=== PATIENT | female | born 1980 | race Caucasian/White ===

== ENCOUNTER 2016-09-24 16:55 | Emergency (ER) | payer OTHER ==
[2016-09-24] MEDS ORDERED: diPHENhydraMINE IV* 50 MG/ML 1 ml VIAL (BENADRYL) IV ONE (18:28)
[2016-09-24] MEDS ORDERED: Famotidine IV* 10 MG/ML 2 ML (20 mg) IV SLOW PU ONE (18:28)
[2016-09-24] MEDS ORDERED: NS 0.9% 1000 ML* 1,000 ML IV ONE (18:29)
[2016-09-24] MEDS ORDERED: methylPREDNISolone 125 MG* 2 ML VIAL IV ONE (18:29)
[2016-09-24 19:24] LABS: Hematocrit 40 % (35-47); Hemoglobin 13.1 g/dl (12.0-16.0); Mean Corpuscular HGB Conc 33 g/dl (31-36); Mean Corpuscular Hemoglobin 30 pg (27-31); Mean Corpuscular Volume 92 fL (80-97); Mean Platelet Volume 10 um3 (7.4-10.4); Red Blood Count 4.34 10^6/ul (4.0-5.4); Red Cell Distribution Width 14 % (10.5-15); White Blood Count 8.3 10^3/ul (3.5-10.8)
[2016-09-24 19:43] LABS: ALT 13 U/L (7-52); AST 17 U/L (13-39); Albumin 4.3 g/dL (3.2-5.2); Alkaline Phosphatase 54 U/L (34-104); Anion Gap 2 mmol/L (2-11); BUN/Creatinine Ratio 12.1 (8-20); Blood Urea Nitrogen 8 mg/dL (6-24); C Reactive Protein < 1.00 mg/L (< 5.00); CO2 Carbon Dioxide 32 mmol/L (22-32); Calcium 9.1 mg/dL (8.6-10.3); Chloride 103 mmol/L (101-111); EGFR African American 129.6 (>60); EGFR Non-African American 100.8 (>60); Globulin 2.6 g/dL (2-4); Glucose 86 mg/dL (70-100); Potassium 3.6 mmol/L (3.5-5.0); Sodium 137 mmol/L (133-145); Total Protein 6.9 g/dL (6.4-8.9)
--- NOTE | 2016-09-24 19:58 | ED ---
Skin Complaint - HPI Summary HPI Summary: Pt here w/ spot/rash on Rt flank. Noticed 6 days ago - no acute pain but was itchy and had 2 black dots within raised red area - thought this may be a spider bite although no witnessed bite. [place] a habit [place] - could have been bitten and not known it and could have come into contact with plant life. This area has gotten larger and blistered - itching and painful now. Has tried topical calamine lotion w/ minimal relief. Reports feeling "off" today but admits this happens to her at times. Associated sx of nausea - no vomiting. Denies facial swelling, throat tightness, trouble breathing/wheezing and no fever but has had chills today. H/o allergy to poison sivan - does not recall if she had systemic sx that she's having now but reports "it was bad". Has not tried anti-histamine. Did drink black cohosh tea yesterday - has had this in the past w/o ill effects. No other sx or recent h/o illness to report. - History of Current Complaint Chief Complaint: EDRashSkinAbscess Time Seen by Provider: 09/24/16 17:45 Stated Complaint: SPIDER BITE? Hx Obtained From: Patient, Family/[employer] - friends - 1 is concerned about her feeling "out of it"; other friend said "she gets this way sometimes" Pain Intensity: 4 - Allergy/Home Medications Allergies/Adverse Reactions: Allergies Allergy/AdvReac Type Severity Reaction Status Date / Time No Known Allergies Allergy Verified 01/18/13 13:51 PMH/Surg Hx/FS Hx/Imm Hx Previously Healthy: Yes Endocrine/Hematology History: Denies: Autoimmune Disease - Immunization History Immunizations Up to Date: Unable to Obtain/Confirm - does not want tetanus today 09/24/2016 Infectious Disease History: Denies: Traveled Outside the [place] in Last 30 Days - Social History Occupation: Employed Part-time Lives: Alone Alcohol Use: None Hx Substance Use: No Substance Use Type: Reports: None Hx Tobacco Use: No Smoking Status (MU): Never Smoked Tobacco Review of Systems Constitutional: Other - see HPI Negative: Photophobia, Blurred Vision, Diplopia Negative: Sore Throat, Ear Ache, Nasal Discharge Negative: Chest Pain Negative: Shortness Of Breath, Cough Positive: Nausea. Negative: Abdominal Pain, Vomiting, Diarrhea Positive: no symptoms reported Musculoskeletal: Negative Negative: Arthralgia, Myalgia Skin: Other - see HPI Neurological: Other - see HPI Negative: Headache, Weakness, Paresthesia, Numbness, Syncope, Slurred Speech Psychological: Other - concerned but calm All Other Systems Reviewed And Are Negative: Yes Physical Exam Triage Information Reviewed: Yes Vital Signs On Initial Exam: Initial Vitals Temp Pulse Resp BP Pulse Ox 99.0 F 79 18 112/73 100 09/24/16 17:22 09/24/16 17:22 09/24/16 17:22 09/24/16 17:22 09/24/16 17:22 Vital Signs Reviewed: Yes Appearance: Positive: Well-Appearing, No Pain Distress, Well-Nourished Skin: Positive: Warm - 10cm area of erythema w/ central clustered vesicles - honey color and crusting in some areas - peripheral lesions are linear w/ vesicles, similar to poison sivan/oak patterns - barely crosses midline - no other vesicles along this path around dermatome Head/Face: Positive: Normal Head/Face Inspection Eyes: Positive: Normal, EOMI, JENELLE, Conjunctiva Clear ENT: Positive: Hearing grossly normal, Pharynx normal Neck: Positive: Supple, Nontender, No Lymphadenopathy Respiratory/Lung Sounds: Positive: Clear to Auscultation, Breath Sounds Present. Negative: Rales, Rhonchi, Stridor, Wheezes Cardiovascular: Positive: Normal, RRR, Pulses are Symmetrical in both Upper and Lower Extremities, S1, S2. Negative: Murmur, Rub, Leg Edema Left, Leg Edema Right Abdomen Description: Positive: No Organomegaly, Soft, Other: - mild TTP -no rebounding Bowel Sounds: Positive: Present Musculoskeletal: Positive: Normal, Strength/ROM Intact Neurological: Positive: Normal, Sensory/Motor Intact, Alert, Oriented to Person Place, Time, CN Intact II-III, Finger to Nose, Facial Symmetry, Speech Normal. Negative: Pronator Drift Present Psychiatric: Positive: Normal Diagnostics - Vital Signs Vital Signs Temp Pulse Resp BP Pulse Ox 09/24/16 17:22 99.0 F 79 18 112/73 100 - Laboratory Lab Results: Lab Results 09/24/16 09/24/16 09/24/16 Range/Units 19:14 19:14 19:14 WBC 8.3 (3.5-10.8) 10^3/ul RBC 4.34 (4.0-5.4) 10^6/ul Hgb 13.1 (12.0-16.0) g/dl Hct 40 (35-47) % MCV 92 (80-97) fL MCH 30 (27-31) pg MCHC 33 (31-36) g/dl RDW 14 (10.5-15) % Plt Count 275 (150-450) 10^3/ul MPV 10 (7.4-10.4) um3 Neut % (Auto) 67.8 (38-83) % Lymph % (Auto) 20.4 L (25-47) % Crowley % (Auto) 6.5 (1-9) % Eos % (Auto) 4.3 (0-6) % Baso % (Auto) 1.0 (0-2) % Absolute Neuts (auto) 5.6 (1.5-7.7) 10^3/ul Absolute Lymphs (auto) 1.7 (1.0-4.8) 10^3/ul Absolute Monos (auto) 0.5 (0-0.8) 10^3/ul Absolute Eos (auto) 0.4 (0-0.6) 10^3/ul Absolute Basos (auto) 0.1 (0-0.2) 10^3/ul Absolute Nucleated RBC 0.01 10^3/ul Nucleated RBC % 0.1 Sodium 137 (133-145) mmol/L Potassium 3.6 (3.5-5.0) mmol/L Chloride 103 (101-111) mmol/L Carbon Dioxide 32 (22-32) mmol/L Anion Gap 2 (2-11) mmol/L BUN 8 (6-24) mg/dL Creatinine 0.66 (0.51-0.95) mg/dL Est GFR ( Amer) 129.6 (>60) Est GFR (Non-Af Amer) 100.8 (>60) BUN/Creatinine Ratio 12.1 (8-20) Glucose 86 (70-100) mg/dL Lactic Acid 0.6 (0.5-2.0) mmol/L Calcium 9.1 (8.6-10.3) mg/dL Total Bilirubin 0.40 (0.2-1.0) mg/dL AST 17 (13-39) U/L ALT 13 (7-52) U/L Alkaline Phosphatase 54 (34-104) U/L C-Reactive Protein < 1.00 (< 5.00) mg/L Total Protein 6.9 (6.4-8.9) g/dL Albumin 4.3 (3.2-5.2) g/dL Globulin 2.6 (2-4) g/dL Albumin/Globulin Ratio 1.7 (1-3) Result Diagrams: 09/24/16 19:14 09/24/16 19:14 Lab Statement: Any lab studies that have been ordered have been reviewed, and results considered in the medical decision making process. Course/Dx - Course Course Of Treatment: Suspect rash is from posion plant (sivan or oak) w/ allergic reaction. Offered benadryl, solumedrol and pepcid d/t ab sx - she accepted solumedrol and pepcid - will take benadryl at home. No change in sx w/ IV meds. Advised rest, continued anti-histamines and steroids and close f/u w/ PCP. Labs do not reveal systemic infection, etc. Diff dx: shingles however this is not typical presentation - pt shared first day onset photo and this appears to be a reaction as she has a small raised area w/ urticarial qualities. Reviewed danger s/sx of when to return to ED. - Diagnoses Provider Diagnoses: Rash of back Discharge - Discharge Plan Condition: Stable Disposition: HOME Prescriptions: Methylprednisolone [Medrol Dosepak 4 MG*] 4 mg PO .SEE BECCA INSTRUCTION #1 becca Patient Education Materials: Acute Rash (ED), Poison Sivan (ED) Referrals: Selam Dunn MD [Primary Care Provider] - Additional Instructions: You may try cool compresses along with rest, hydration and benadryl 50mg every 6 hours as needed for itching and swelling. It is advised that you continue a steroid to reduce swelling, itching as well. This has been sent to your pharmacy - start tomorrow and complete pack. You may take pepcid as well as needed for itching, swelling and nausea symptoms. Follow-up with PCP this week. *If worse or you develop fever, chills, vomiting, neck pain/stiffness, headache , weakness, numbness, return to ED
[2016-09-24 20:39] VITALS: BP 106/76
[2016-09-24] MEDS ORDERED: diPHENhydraMINE PO* 50 MG PO ONE (21:06)
== END 2016-09-24 20:46 | disposition home or self-care (01) ==
LOC: ED 16:55
DX: R21 Rash and other nonspecific skin eruption (principal); R11.0 Nausea
CPT/HCPCS: 36415; 80053; 83605; 85025; 86140; 96374; 96375; 99282; A9270-GY; J1200; J2930